=== PATIENT | female | born 1950 | race Caucasian/White ===

== ENCOUNTER 2017-06-06 12:44 | Emergency (ER) | payer SELFPAY ==
[2017-06-06 12:45] VITALS: BP 206/86; PULSE 69; RESP 28; BMI 39.0
--- NOTE | 2017-06-06 12:55 | RAD_ITS ---
STUDY: X-RAY - LEFT SHOULDER REASON FOR EXAM: Female, 66 years old. Left shoulder pain, recent fall. TECHNIQUE: 2 view(s) of the shoulder. COMPARISON: None available FINDINGS: Comminuted fractures are noted through the humeral head and neck with bony overlap of the proximal humeral shaft and one of the humeral head bony fragments. In addition, the humeral head bony fragments are not superimposed upon the Y of the scapula indicating complete dislocation until proven otherwise. The acromioclavicular joint appears intact with fairly severe narrowing suggested. The scapula, ribs and adjacent lung appear intact large gross pneumothorax identified. Fairly severe aortic knob calcifications noted. Mild osteopenia suggested. Moderate increased soft tissue density overlies the deltoid muscle and adjacent tissues suggesting soft tissue swelling and/or hematoma. No radiopaque foreign body or subcutaneous emphysema noted. Normal visualized pulmonary apex. RAD/Shoulder min 2 Views IMPRESSION: Severe left humeral head and neck comminuted fractures, impaction type with proximal humeral shaft superimposed upon the humeral head tiny bony fragments. Complete left glenohumeral dislocation until proven otherwise. Additional views or CT may be more helpful. Electronically Signed: Jovanny Delgado, at 14:36 EDT Tel , Service support ,
[2017-06-06] MEDS: Ondansetron 4 MG/2 ML Vial IV (13:06)
[2017-06-06] MEDS: Morphine 4 MG/ML Syringe IV ×2 (13:08→14:01)
[2017-06-06 13:10] VITALS: TEMP 36.4
--- NOTE | 2017-06-06 13:34 | PCA ---
PAGED DR NIKOLE CANO FOR DR DURBIN AT 1:34
--- NOTE | 2017-06-06 13:45 | ED.VISSUMM ---
- ER Visit Summary Date of Service: 06/06/17 Chief Complaint: Shoulder pain status post fall History of Present Illness: The patient is a 66 F who was carrying orozco down a step. Missed the step. She landed on her left shoulder. She presents with significant pain. She is reluctant to move the left upper extremity. The left upper extremity is internally rotated and adductor. She denies any paresthesia, anesthesia medics. She denies head trauma. Denies neck pain. She is not on any anticoagulant. She denies any cardiac respiratory symptoms. Please read written note for complete detail. Physical Examination: Is in obvious discomfort. Blood pressure is elevated most likely because of pain. There is no pain the patient over the clavicle or AC joint. There is significant pain over the proximal humerus. There is no penetration over the lateral medial epicondyle. No pain the patient with electron process. As noted the patient with radial head. No invasion of the distal radius ulna, carpal bones, metacarpal bones or phalanges. Axillary, median, radial and ulnar function intact. Heart is regular without murmur, gallop or rub. S1 and S2 are normal. Lungs are clear to auscultation with good movement of air bilaterally. Test Results: Two-view x-ray of the elbow was obtained and reveals a Neer 2 part fracture 2 anatomical neck left proximal humerus. Emergency Department Course and Treatment: He was established patient was medicated with 4 mg of morphine and 4 mg of Zofran. Case was discussed with Dr. Ezra Brooks. He recommends sling swath and outpatient follow-up for surgical intervention Treatment Plan: Opiate analgesia, orthopedic outpatient follow-up for surgical intervention Disposition: Discharged to home with sling swath with Impression: Neer 2 part proximal humeral fracture anatomical neck left humerus This note was generated with [employer] dictation software. It may contain incorrect words, spelling, and punctuation that were not noted in review of the chart prior to signing ED Disposition - Plan for ED Patient: Disposition: Home or Assisted Living Chief Complaint: Upper Extremity Injury Instructions: ED Fx Shoulder Prescriptions: Oxycodone HCl/Acetaminophen [Percocet 7.5-325 mg Tablet] 1 tab PO Q6H PRN PRN 5 Days #20 tab PRN Reason: Pain Referrals: Care Physician,No Primary [Primary Care Provider] - Ezra Brooks DO [STAFF PHYSICIAN] - 2 Days
--- NOTE | 2017-06-06 13:51 | ED.DCSUM_ITS ---
- ER Visit Summary Date of Service: 06/06/17 Chief Complaint: Shoulder pain status post fall History of Present Illness: The patient is a 66 F who was carrying orozco down a step. Missed the step. She landed on her left shoulder. She presents with significant pain. She is reluctant to move the left upper extremity. The left upper extremity is internally rotated and adductor. She denies any paresthesia , anesthesia medics. She denies head trauma. Denies neck pain. She is not on any anticoagulant. She denies any cardiac respiratory symptoms. Please read written note for complete detail. Physical Examination: Is in obvious discomfort. Blood pressure is elevated most likely because of pain. There is no pain the patient over the clavicle or AC joint. There is significant pain over the proximal humerus. There is no penetration over the lateral medial epicondyle. No pain the patient with electron process. As noted the patient with radial head. No invasion of the distal radius ulna, carpal bones, metacarpal bones or phalanges. Axillary, median, radial and ulnar function intact. Heart is regular without murmur, gallop or rub. S1 and S2 are normal. Lungs are clear to auscultation with good movement of air bilaterally. Test Results: Two-view x-ray of the elbow was obtained and reveals a Neer 2 part fracture 2 anatomical neck left proximal humerus. Emergency Department Course and Treatment: He was established patient was medicated with 4 mg of morphine and 4 mg of Zofran. Case was discussed with Dr. Ezra Brooks. He recommends sling swath and outpatient follow-up for surgical intervention Treatment Plan: Opiate analgesia, orthopedic outpatient follow-up for surgical intervention Disposition: Discharged to home with sling swath with Impression: Neer 2 part proximal humeral fracture anatomical neck left humerus This note was generated with [employer] dictation software. It may contain incorrect words, spelling, and punctuation that were not noted in review of the chart prior to signing ED Disposition - Plan for ED Patient: Disposition: Home or Assisted Living Chief Complaint: Upper Extremity Injury Instructions: ED Fx Shoulder Prescriptions: Oxycodone HCl/Acetaminophen [Percocet 7.5-325 mg Tablet] 1 tab PO Q6H PRN PRN 5 Days #20 tab PRN Reason: Pain Referrals: Care Physician,No Primary [Primary Care Provider] - Ezra Brooks DO [STAFF PHYSICIAN] - 2 Days
[2017-06-06 14:55] VITALS: BP 111/84; PULSE 61; RESP 14
== END 2017-06-06 14:57 | disposition home or self-care (01) ==
PROVIDERS: Emergency Provider Emergency Medicine
DX: S42.292A Other displaced fracture of upper end of left humerus, initial encounter for closed fracture (principal); W10.9XXA Fall (on) (from) unspecified stairs and steps, initial encounter; Y93.9 Activity, unspecified; Y92.9 Unspecified place or not applicable; Y99.9 Unspecified external cause status; E66.9 Obesity, unspecified
CPT/HCPCS: 73030; 96374; 96375; 96376; 99283; A4216; J2405

== ENCOUNTER 2017-06-18 12:29 | Inpatient (IN) | payer SELFPAY ==
[2017-06-13 08:10] VITALS: BP 146/89; PULSE 78; RESP 16; TEMP 36.8; O2SAT 98; BMI 41.3
--- NOTE | 2017-06-13 08:33 | SDCEKG_ITS ---
Test Reason : Blood Pressure : / mmHG Vent. Rate : 071 BPM Atrial Rate : 071 BPM P-R Int : 174 ms QRS Dur : 084 ms QT Int : 368 ms P-R-T Axes : -02 031 020 degrees QTc Int : 399 ms Normal sinus rhythm Normal ECG Confirmed by JORDEN JANSEN MD ([id number]), editor in chief STARLA IQBAL ([id number]) on 06/17/2017 2:24:09 PM Referred By: READER WIDST Confirmed By:JORDEN JANSEN MD
[2017-06-13 09:34] LABS: Hematocrit 37.6 % (37-47); Hemoglobin 12.3 g/dl (12.0-15.0); Mean Corp Hgb Conc 32.7 g/gl (32-36); Mean Corpuscular Hgb 30.7 pg (27.0-32.0); Mean Corpuscular Volume 93.8 fL (81-99); Mean Platelet Vol. 9.8 fl (6.2-12.0); Platelet Count 215 K/mm3 (150-450); RBC Distribution Width CV 12.6 % (11.6-14.6); RBC Distribution Width SD 43.1 fl (35.1-43.9); Red Blood Count 4.01 M/mm3 (4.2-5.4); Scan Indicated on CBC? Y/N NO
[2017-06-13 09:57] LABS: Anion Gap 7 (5-15); BUN 20 mg/dL (7-18); BUN/Creat Ratio 21.6 RATIO (10-20); Calcium,Total 9.7 mg/dL (8.5-10.1); Chloride 107 mmol/L (98-107); Creatinine, Serum 0.92 mg/dL (0.55-1.02); EST Glomerular Filtration Rate 65 mL/min (>60); Est Glom Filt Rate - Afr Amer 78 mL/min (>60); Glucose 97 mg/dL (74-106); Potassium 4.1 mmol/L (3.5-5.1); Sodium Level 142 mmol/L (136-145)
[2017-06-18] VITALS (11 sets, daily range): BP systolic 107–144; BP diastolic 42–77; PULSE 70–101; RESP 13–18; TEMP 36.2–36.6; O2SAT 39–97; BMI 41.3; BMI 48.0
--- NOTE | 2017-06-18 | SHO_PTH ---
PATIENT: BRANDI ESCOBAR LOC: [facility] U#:[id number] AGE/SX: 66/F ROOM: [facility]316 RE06/18/[address]: Dr. Nile Garg MD : [id number] BED: 1 DIS: 06/19/2017 SPEC #: [id number] RECD: 06/19/17 11:09 STATUS: LINUS REHeidi #: [id number] CECY: 06/18/17 00:[address]: Nile Garg DEPT: SURGICAL PATHOLOGY RECD BY: Kayode Wyman ENTERED: 06/19/17 11:09 SP TYPE: HUMERUS OTHR DR: No Primary Care Phys Tissues: Humerus, NOS Procedures: Decalcification bone/plaque Surgery Specimen Level IV HEADER OPERATION: Total shoulder replacement, reverse PRE-OP DIAGNOSIS: Fracture surgical neck, left humerus TISSUE SUBMITTED: Bone and tissue left shoulder MICROSCOPIC DIAGNOSIS Bone and tissue of left shoulder, total shoulder resection: Organizing fracture callus. AM:robin 06/24/17 MICROSCOPIC DESCRIPTION Slides are reviewed. GROSS DESCRIPTION Received is one container labeled with the patient's name and not further designated. The specimen consists of multiple pieces of bone measuring in aggregate 7 x 7 x 3 cm. A few of the pieces have articular surfaces consistent with humeral head. The articular surface is smooth. The resection margins are congested and hemorrhagic. No soft tissue is identified. Wheel Cutter sections are submitted in two cassettes after decalcification. / SJ:robin 06/19/17 TC:5 CPT: 98447, 62754
--- NOTE | 2017-06-18 12:21 | PCM.OPRPT ---
Report of Operation Date of Procedure: 06/18/17 Pre-Operative Diagnosis: Left 4 part proximal humerus fracture Post-Operative Diagnosis: Left 4 part proximal humerus fracture Surgery/Procedure Performed:: Left reverse total shoulder replacement Description of Surgical Findings:: Stable shoulder with well repaired tuberosities. pest management supervisor: Zain Lainez Type of Anesthesia:: General/Regional Anesthesiologist: Johnny Nichols Special Medications: 2 g Ancef, 1 g TXA at incision, 1 g TXA closure, 10 mg Decadron, joint cocktail (5 mg Duramorph, 30 mL of 0.5% Ropivicaine, 1000 units of epinephrine, 30 mg of Toradol), 1 g Vanc given throughout the case Specimen's removed: Bony cuts Estimated Blood Loss (mL): 150 Fluids Replaced: 1500 ml Description of Procedure: Components used 1. Reunion 28 mm glenoid baseplate, [place] 2. [place] 32 mm +6 mm Glenosphere 3. Carlota 32 mm, 4mm humeral liner 4. [place] reverse TSA humeral adapter tray +4 mm 5. [place] humeral fracture stem 8mm size Brief history/Operative indications: 66 yo f with history of L shoulder pain and four-part proximal humerus fracture. Based on fracture pattern and patient's age and function a reverse total shoulder replacement was recommended. After discussion of risk and benefits of reverse total shoulder replacement including but not limited to blood loss, DVTs, PEs, nerve vessel damage, infection, general risk of anesthesia including loss of life, instability and stiffness patient demonstrating understanding wish to proceed was able to sign informed consent. Medical clearance was obtained. Procedure: On the date of the procedure, patient's L upper extremity was marked in the preoperative area. Patient was taken back to the operating room where they were placed on the table in the supine position. Anesthesia assumed control of the C-spine and airway, then administered anesthetic. All bony prominences were identified well-padded, the head was secured and the patient was placed in the beachchair position at about 35? inclination. Anesthesia remained in control of the C-spine airway throughout the remainder of the procedure. Patient was then appropriately fastened to the table and the L upper extremity was prepped in a sterile fashion. The surgeons then scrubbed. Upon reentering the room, the L upper extremity was draped in a sterile fashion and the incision was marked out. Timeout was called, everyone agreed upon the side, the site, the procedure to be performed, patient identity and antibiotics given. Incision was taken down through skin and subcutaneous tissue, fat down to fascia. The stripe of the deltopectoral interval and cephalic vein were identified and blunt dissection was used to retract the deltoid. The cephalic vein was retracted laterally. Clavipectoral fascia was then incised and a cobell retractor was placed in the wound. The proximal one third of the pectoralis major insertion was released. Pectoralis tendon insertion was used to tenodesed the biceps tendon which was identified in the bicipital groove. Tenodesis was done with #1 Vicryl. Proximally we followed the biceps tendon after transecting it into the rotator interval. The rotator interval was split and the arm was externally rotated. At this point the fracture fragments were identified. The lesser tuberosity fragment was tagged with #2 fiber wires. The greater tuberosity fragment was tagged with #2 FiberWire. The humeral head fragments were debrided from the joint. Extra bone was sent on the back table for graft. At this time glenoid exposure was possible and the glenoid was exposed. Proximal biceps and labrum were debrided from the glenoid. At this time we are able to view the entire outer edge of the glenoid. A central pin was placed we sequentially reamed over this central pin to 28mm. Based on the pin drilling we selected a 32 mm central screw. Glenoid baseplate was opened and held into place as the compression screw was placed centrally. Wound was closely irrigated out with normal saline we then drilled sequentially for 4 screws. Screws were placed superiorly and inferiorly and tightened down the screws. Once the screws were appropriately tightened into place the glenoid baseplate was compressed against the exposed subchondral bone. Locking caps were placed and a 32 mm with 6 mm offset glenosphere was impacted into place engaging the Dowling taper. First taper was tested and was found to be appropriate. Attention was then turned towards the humerus. The humerus was again externally rotated exposing the proximal portion of the humerus. Central canal finder was then used to open up the canal. We reamed t feel canal we then broached to a 8 mm stem. Calcar cut was cleaned up. We trialed the 4 mm liner, with the +4 mm humeral baseplate. We obtained an adequate reduction at this time with a nice stable shoulder. Good internal rotation to the gluteus, forward elevation to 140?, external rotation to 20?. Final components were then assembled on the back table, trials were removed and the wound was copiously irrigated with normal saline after dislocating the shoulder. #5 FiberWire was placed to the fracture stem and the fracture stem was impacted into place. Polyethylene and baseplate were assembled on the back table once the final components were assembled they were impacted into place. Shoulder was then reduced and found to be stable with good range of motion. Tuberosities were repaired using #2 FiberWire take stitches and #5 fiber wires that were run through the fracture stem. Wound was then copiously irrigated out with 1 L of normal saline lavage. The deltopectoral fascia was then closed using #1 Vicryl skin was closed using 2-0 Vicryl interrupted sutures and final skin closure was done with 3-0 Monocryl. Steri-Strips are placed for final skin closure. Sterile dressing was placed patient was then placed in a sling and awakened by anesthesia. Patient was then transferred to the PACU for recovery. Postoperative plan: Patient will be admitted to the hospital overnight. They will get physical therapy starting in 2 weeks with normal postoperative regimen. Patient will be placed on 325 mg aspirin daily for DVT prophylaxis. The first postoperative appointment will be in 2 weeks for wound check and initiation of phase 1 physical therapy. During the course of the procedure the physician acute care certified nursing assistant played a vital role. His intimate knowledge of my steps in the procedure aided in safe and expedient completion of the procedure. The PA played a vital rolls in positioning particularly in obtaining the appropriate beach chair position and securing the patient's body and head to the table. The PA was also vital in the retraction of soft tissues during the exposure and especially the glenoid work as this is a vital part of the procedure to prevent neurovascular damage. the PA was also vital and protecting soft tissues during times of bony cuts and reaming. He also played a vital role in closure with my direct supervision. The PA was also important during reduction and dislocation of the joint and trials intraoperatively. Grafts/Implants Used: [place] - Complications none - Admit VTE Documentation VTE Present on Admission: No VTE Mechan Device Prophylaxis: SCD's, Thigh High JEM Hose VTE Pharm Prophylaxis ordered?: Yes
[2017-06-18] MEDS: Celecoxib 200 MG Capsule 400 MG PO (13:14)
[2017-06-18] MEDS: Acetaminophen 500 MG Tablet 1000 MG PO (13:14)
[2017-06-18] MEDS: morphine SR 15 MG Tablet PO (13:45)
[2017-06-18] MEDS: Cefazolin 2 GM in 0.9% Normal Saline 100 ML IV (14:40)
--- NOTE | 2017-06-18 17:05 | RAD_ITS ---
STUDY: X-RAY - LEFT SHOULDER REASON FOR EXAM: Female, 66 years old. Postop TECHNIQUE: Single view of the shoulder. COMPARISON: June 06, 2017. FINDINGS: Status post left shoulder prosthesis placement. The hardware components are well aligned on this single limited view. Post surgical changes in the adjacent soft tissue. Normal visualized pulmonary apex. RAD/Shoulder One View IMPRESSION: Status prosthesis placement of the shoulder with postsurgical changes. Electronically Signed: Robinson Roman DO at 18:36 EDT Tel [phone], Service support ,
[2017-06-18] MEDS: Ketorolac 15 MG/ML Vial IV (17:10)
[2017-06-18] MEDS: Lactated Ringers 1,000 ML 125 ML IV (18:26)
[2017-06-18] MEDS: Morphine 2 MG/ML Syringe IV (20:18)
[2017-06-18] MEDS: 0.9% NaCl Peripheral Flush Adult/Peds IV (20:19)
[2017-06-18] MEDS: Cefazolin 1 GM/50 ML BAG IV (20:24)
[2017-06-19] MEDS: Cefazolin 1 GM/50 ML BAG IV (04:59)
[2017-06-19] MEDS: Lactated Ringers 1,000 ML 125 ML IV (04:59)
[2017-06-19 05:00] VITALS: BP 120/70; PULSE 79; RESP 18; TEMP 36.3; O2SAT 96
[2017-06-19] MEDS: Acetaminophen 500 MG Tablet 1000 MG PO ×2 (05:01→13:44)
[2017-06-19] MEDS: Morphine 2 MG/ML Syringe IV (05:02)
--- NOTE | 2017-06-19 07:27 | PN.ORTHO_ITS ---
Subjective: The patient was sitting in bed upon examination. Patient denies any chest pain , shortness of breath, dizziness, lightheadedness, nausea or vomiting, or calf pain. Pain is controlled on medications. No adverse overnight events. Patient does report if she moves her shoulder she does have increased pain. At rest in UltraSling she is doing well. Objective: Dressing is C/D/I Ultra-sling fitting appropriately Sensation intact to axillary, radial, median, and ulnar distribution Motor intact to AIN, PIN, and ulnar nerve - Physical Exam General: Alert, Oriented x3, Cooperative, No apparent distress Vital Signs Temp Pulse Resp BP Pulse Ox 97.4 F L 79 18 120/70 96 06/19/17 05:00 06/19/17 05:00 06/19/17 05:00 06/19/17 05:00 06/19/17 05:00 Oxygen Flow Rate (L/min) 2 Oxygen Delivery Method Nasal Cannula Weight: 127.006 kg Body Mass Index (BMI) 48.0 Intake and Output for Last 24 Hours 06/17/17 06/18/17 06/19/17 23:59 23:59 23:59 Intake Total 1700 / 1700 1349 / 1349 Output Total 250 / 250 Balance 1700 / 1700 1099 / 1099 Medical Necessity - Tobacco Use Smoking Status: Former smoker Assessment/Plan 1. S/P left reverse total shoulder arthroplasty secondary to four-part proximal humerus fracture POD #1 2. Continue Pain Medications: Tylenol and tramadol 3. DVT Prophylaxis: Aspirin 325 mg daily 4. PT/OT: Continue with UltraSling at all times. Patient is to come out 3-4 times to work on elbow, wrist, hand range of motion. Formal physical therapy will begin 2 weeks postoperatively after follow-up visit. 5. Encouraged Incentive Spirometry 6. Disposition: Plan will be for possible discharge home today if pain is well controlled. Prescriptions are attached to chart. Patient will follow-up per postop instructions.
--- NOTE | 2017-06-19 07:33 | DCINST_ITS ---
Discharge Diet: No Restrictions Discharge Activity: May Not Drive May shower in (days): 1 - Turned dressing away from water Ice area for (Minutes): 20 - Ice area for 20 minutes each hour while awake Weight Bearing Status: No weight bearing - Left upper extremity Keep extremity elevated above heart level: Operative Extremity Call your doctor if your incision/area has: Continuous Slow Oozing, Sudden Increased Bleeding, Increased Pain/ Swelling, Increased Redness, Foul Smelling Discharge Call your doctor if you observe: Fever of 101 or Higher, Coldness, Increased Pain, Numbness or Tingling, Change in Color Remove Dressing in (days):: 4 - Okay to remove dressing on June 23, 2017 Additional Instructions: Follow [facility] postop instructions Allergies/Adverse Reactions: Allergies oxycodone [From Percocet] Allergy (Verified 06/13/17 08:09) Itching HEADACHE, NAUSEATED Sulfa (Sulfonamide Antibiotics) Allergy (Verified 06/13/17 08:09) Anaphylaxis Medications to take at Discharge Acetaminophen [Tylenol] 1,000 mg PO Q8 #90 tab 06/19/17 Aspirin 325 mg PO DAILY@0800 #14 tab 06/19/17 Famotidine [Pepcid] 20 mg PO DAILY #14 tab 06/19/17 Senna/Docusate Sodium [Senokot-S] 2 tab PO BID PRN PRN #20 tab 06/19/17 traMADol [Ultram] 50 - 100 mg PO Q6H PRN PRN 7 Days #56 tab 06/19/17 The following prescriptions were given: traMADol [Ultram] 50 - 100 mg PO Q6H PRN PRN 7 Days #56 tab PRN Reason: Pain Acetaminophen [Tylenol] 1,000 mg PO Q8 #90 tab Aspirin 325 mg PO DAILY@0800 #14 tab Famotidine [Pepcid] 20 mg PO DAILY #14 tab Senna/Docusate Sodium [Senokot-S] 2 tab PO BID PRN PRN #20 tab PRN Reason: Constipation Primary Care Physician: Care Physician,No Primary [Primary Care Provider] - Please Follow Up With: Zain Lainez PA-C When: 07/01/17 @ 3:30 pm Please Follow Up With: [facility] When: 07/01/17 @ 4:30 pm with Anny
[2017-06-19 08:51] VITALS: BP 125/61; PULSE 77; RESP 18; TEMP 37.1; O2SAT 92
[2017-06-19] MEDS: Famotidine 20 MG Tablet PO (09:09)
[2017-06-19] MEDS: Aspirin 325 MG Tablet PO (09:09)
[2017-06-19] MEDS: traMADol 50 MG Tablet PO (09:12)
--- NOTE | 2017-06-19 09:55 | CASEMGMT ---
Social Work Assessment SW met with pt for initial assessment and to determine discharge needs. SW introduced self and role at [facility]. Pt is listed as self-pay. SW confirmed with pt that she is self-pay and pt is. SW asked pt if she had applied for Medicaid before and pt states that she has but got denied. SW offered resources on [place] [id number], [facility], [facility] financial assistance (if pt was to follow up with them, prescription assistance and HCAP information for pt. SW also provided pt with a list of primary care physicians as pt doesn't have one. Pt states that she lives in a one store home with her and her is good support for her. Pt states that her is able to provide help when needed. Pt states that her is retired. Pt states that before coming to [facility] she was previously independent with ADLs. Pt states that she has a cane at home and uses a regular chair in the bath tub. Per discharge instructions, pt is to follow up with Zain Lainez PA-C on 07/01/2017 at 3:30pm and [facility] for physical therapy on 07/01/2017 at 4:30pm with Anyn. Pt denied additional needs at this time. SW will continue to follow to assist with discharge planning if needed. Substance Abuse Hx: Pt state that she used to smoke cigarettes but she quit. Pt denied additional substance abuse. Mental Health Hx: Pt states that she has a history of dealing with depression. Pt denied taking medication or receiving counseling services for her depression. Pt currently denied depressive symptoms. Pt denied needing mental health resources. Plan: Discharge home with outpatient therapy Althea Merrill CONSULTING INTERN, CRIMINAL JUSTICE INSTRUCTOR
[2017-06-19] MEDS: 0.9% NaCl Peripheral Flush Adult/Peds IV (11:32)
[2017-06-19] MEDS: Ketorolac 15 MG/ML Vial IV (11:33)
[2017-06-19 13:34] VITALS: BP 132/66; PULSE 80; RESP 18; TEMP 36.5; O2SAT 98
== END 2017-06-19 14:30 | disposition home or self-care (01) | DRG 483 ==
LOC: MS3 12:30
PROVIDERS: Admitting Provider Specialist; Visit Provider Specialist
PROC: 0RRK00Z Replacement of Left Shoulder Joint with Reverse Ball and Socket Synthetic Substitute, Open Approach (ICD-10-PCS; CPT 23472; principal; 2017-06-18 14:15)
DX: S42.242A 4-part fracture of surgical neck of left humerus, initial encounter for closed fracture (principal); Z68.41 Body mass index [BMI] 40.0-44.9, adult; W10.9XXA Fall (on) (from) unspecified stairs and steps, initial encounter; Y93.9 Activity, unspecified; Y92.22 Religious institution as the place of occurrence of the external cause; Y99.0 Civilian activity done for income or pay; K21.9 Gastro-esophageal reflux disease without esophagitis; E66.9 Obesity, unspecified; F32.9 Major depressive disorder, single episode, unspecified; Z78.0 Asymptomatic menopausal state; Z87.891 Personal history of nicotine dependence
CPT/HCPCS: 73020; 80048; 85027; 87081; 88305; 88311; 93005; 97166; J7120; A4216; J2405

== ENCOUNTER 2017-06-23 23:33 | Emergency (ER) | payer SELFPAY ==
[2017-06-23 23:35] VITALS: BP 145/88; PULSE 64; RESP 15; TEMP 36.6; BMI 41.3
[2017-06-24] MEDS: Ondansetron 4 MG/2 ML Vial IV (00:04)
[2017-06-24] MEDS: 0.9% Normal Saline 1,000 ML 999 ML IV (00:04)
--- NOTE | 2017-06-24 00:10 | ED.DCSUM_ITS ---
- ER Visit Summary Date of Service: 06/24/17 Chief Complaint: Sick History of Present Illness: The patient is a 66 F with nausea and vomiting for 2 days. The patient had a left total shoulder replacement [address] Garg, and she was discharged home 4 days ago from the hospital. She did well the first day at home, and felt slightly nauseated the second day. After that, she began to have nausea, vomiting, worse after taking tramadol. She also reports no bowel movement since surgery. Denies abdominal pain. Denies urinary symptoms. Denies chest pain or shortness of breath. Denies fever. Denies any shoulder pain, weakness, or numbness. Denies any drainage or bleeding. Physical Examination: Afebrile and vital signs unremarkable. No acute distress. Shoulder shows postoperative changes. Sites appear clean, dry, and intact. She is neurovascular intact distally. Heart regular. Lungs clear. Abdomen soft and nontender. Skin appears normal. Test Results: KUB pending. Emergency Department Course and Treatment: Patient treated with fluids and Zofran while awaiting results. I suspect this may be a medication reaction. She has had reactions to narcotics in the past. I am also concerned because she is constipated. This may also be from the narcotic, but I am checking a KUB to make sure she has no sign of ileus or obstruction. Will reassess. X-ray negative. On reassessment, patient is feeling much better. I suspect that her symptoms of constipation and upset stomach may be from the tramadol. She has tolerated [place] and Vicodin in the past. Will prescribe a short course. Discontinue the tramadol. She is not on any other controlled substances currently. Patient was advised other medical issues and surgical issues can cause vomiting. Return for any abdominal pain, new or worsening symptoms. Otherwise, follow-up with her doctor. Treatment Plan: As above Disposition: Discharged Impression: 1. Nausea and vomiting 2. Status post left shoulder replacement This note was generated with [employer] software. It may contain incorrect words, spelling, and punctuation that were not noted in review of the chart prior to signing ED Disposition - Plan for ED Patient: Disposition: Home or Assisted Living Chief Complaint: Nausea/Vomiting Instructions: ED Nausea Vomiting Prescriptions: Hydrocodone Bitart/Apap 5-325 [[place] 5/325] 1 tab PO Q6H PRN PRN 3 Days #12 tab PRN Reason: Pain Ondansetron [Zofran Odt] 4 mg PO Q8H PRN PRN #10 tab PRN Reason: Nausea Senna [Senokot] 1 tab PO DAILY #10 tab Referrals: Nile Garg MD [STAFF PHYSICIAN] -
--- NOTE | 2017-06-24 00:14 | RAD_ITS ---
STUDY: X-RAY - ABDOMEN/PELVIS REASON FOR EXAM: Female, 66 years old. NAUSEA. PATIENT HAD SHOULDER SURGERY THIS PAST SATURDAY TECHNIQUE: 3 AP supine views of the abdomen and pelvis. COMPARISON: None. FINDINGS: Normal visualized lung bases. There is an unremarkable bowel gas pattern. There is no demonstrated free abdominal air. The visualized liver, spleen and kidneys are grossly normal in size and morphology. Normal soft tissue structures. Normal visualized osseous structures. RAD/Abdomen Single View (Portable) IMPRESSION: Normal x-ray examination of the abdomen and pelvis. Electronically Signed: Mya Pichardo MD at 1:41 EDT Tel , Service support ,
--- NOTE | 2017-06-24 01:57 | ED.DEP ---
ED Disposition - Plan for ED Patient: Chief Complaint: Nausea/Vomiting Instructions: ED Nausea Vomiting Prescriptions: Hydrocodone Bitart/Apap 5-325 [[place] 5/325] 1 tab PO Q6H PRN PRN 3 Days #12 tab PRN Reason: Pain Ondansetron [Zofran Odt] 4 mg PO Q8H PRN PRN #10 tab PRN Reason: Nausea Senna [Senokot] 1 tab PO DAILY #10 tab Referrals: Nile Garg MD [STAFF PHYSICIAN] -
--- NOTE | 2017-06-24 02:00 | DCINST.ED_ITS ---
ED Disposition - Plan for ED Patient: Chief Complaint: Nausea/Vomiting Instructions: ED Nausea Vomiting Prescriptions: Hydrocodone Bitart/Apap 5-325 [[place] 5/325] 1 tab PO Q6H PRN PRN 3 Days #12 tab PRN Reason: Pain Ondansetron [Zofran Odt] 4 mg PO Q8H PRN PRN #10 tab PRN Reason: Nausea Senna [Senokot] 1 tab PO DAILY #10 tab Referrals: Nile Garg MD [STAFF PHYSICIAN] -
[2017-06-24 02:05] VITALS: BP 144/74; PULSE 66; O2SAT 97
== END 2017-06-24 02:08 | disposition home or self-care (01) ==
PROVIDERS: Emergency Provider Emergency Medicine
DX: R11.2 Nausea with vomiting, unspecified (principal); T40.4X5A Adverse effect of other synthetic narcotics, initial encounter; Y92.9 Unspecified place or not applicable; K59.00 Constipation, unspecified; Z96.612 Presence of left artificial shoulder joint; Z87.891 Personal history of nicotine dependence
CPT/HCPCS: 74018; 96361; 96374; 99283; J7030; A4216; J2405

== ENCOUNTER → 2023-01-03 | Outpatient (CLI) | payer MEDICARE, OTHER, SELFPAY ==
[2023-01-03 17:36] LABS: Absolute Lymphocyte Count 1.95 X10^3/uL (0.83-4.51); Absolute Neutrophil Count 3.5 X10^3/uL (2.0-7.7); Basophil# 0.07 X10^3/uL; Basophil% 1.1 % (0-1); Eosinophil# 0.26 X10^3/uL; Eosinophils% 4.2 % (0-5); Hemoglobin 14.8 g/dL (12.0-15.0); Lymphocyte # 1.95 X10^3/ul (0.83-4.51); Lymphocyte % 31.3 % (19-41); Mean Corp Hgb Conc 32.9 g/dL (32-36); Mean Corpuscular Hgb 31.2 pg (27.0-32.0); Mean Corpuscular Volume 94.7 fL (81-99); Mean Platelet Vol. 10.1 fl (6.2-12.0); Monocyte# 0.48 X10^3/uL; Monocyte% 7.7 % (0-10); NRBC Flagged by Analyzer 0 % (0-5); Neutrophil # 3.45 X10^3/uL (2.7-7.7); Neutrophil % 55.4 % (47-70); Platelet Count 248 K/mm3 (150-450); RBC Distribution Width CV 12.3 % (11.6-14.6); RBC Distribution Width SD 42.9 fl (35.1-43.9); Red Blood Count 4.75 M/mm3 (4.2-5.4); White Blood Count 6.2 K/mm3 (4.4-11.0)
[2023-01-03 18:31] LABS: ALB/GLOB Ratio 1.2 RATIO (0.9-2.4); AST(SGOT) 21 U/L (15-37); Alanine Aminotransfer ALT/SGPT 36 U/L (13-56); Albumin, Serum 3.7 g/dL (3.2-5.0); Alkaline Phosphatase 97 U/L (45-117); Anion Gap 6 (5-15); BUN 15 mg/dL (7-18); BUN/Creat Ratio 17.1 RATIO (10-20); Calcium,Total 10.7 mg/dL (8.5-10.1); Chloride 109 mmol/L (98-107); Creatinine, Serum 0.88 mg/dL (0.55-1.02); EST Glomerular Filtration Rate 68 mL/min (>60); Est Glom Filt Rate - Afr Amer 82 mL/min (>60); Globulin 3.2 g/dL (2.2-4.2); Glucose 92 mg/dL (74-106); Potassium 3.9 mmol/L (3.5-5.1); Protein, Total 6.9 g/dL (6.4-8.2); Sodium Level 141 mmol/L (136-145); Thyroid Stim Hormone (TSH) 1.84 uIU/mL (0.358-3.74)
[2023-01-03 18:50] LABS: Hepatitis C Antibody Non-Reactive (Nonreactive); Vitamin B12 291 pg/mL (211-911); Vitamin D,25 Hydroxy 16.4 ng/mL
[2023-01-07 15:07] LABS: PROEL- A/G Ratio 1.3 (0.7-1.7); PROEL- Albumin 3.6 g/dL (2.9-4.4); PROEL- Alpha-1 Globulin 0.2 g/dL (0.0-0.4); PROEL- Alpha-2 Globulin 0.8 g/dL (0.4-1.0); PROEL- Gamma Globulin 0.7 g/dL (0.4-1.8); PROEL- Globulin, Total 2.7 g/dL (2.2-3.9); PROEL- TOTAL PROTEIN 6.3 g/dL (6.0-8.5); PROEL-M-Spike Not Observed g/dL (Not Observed)
== END | disposition home or self-care (01) ==
LOC: POLAB3 16:30
PROVIDERS: PCP Family Medicine Geriatric Medicine; Visit Provider Family Medicine Geriatric Medicine
DX: R53.83 Other fatigue (principal); Z13.89 Encounter for screening for other disorder; E55.9 Vitamin D deficiency, unspecified
CPT/HCPCS: 36415; 80053; 82306; 82607; 84165; 84443; 85025; 86803

== ENCOUNTER → 2023-01-22 | Outpatient (CLI) | payer MEDICARE, OTHER, SELFPAY ==
--- NOTE | 2023-01-22 08:57 | BD_ITS ---
STUDY: DUAL ENERGY X-RAY ABSORPTIOMETRY / DXA REASON FOR EXAM: Female, 72 years old. 627.8Menopausal postmenopausal BONE DENSITY REASON FOR EXAM TECHNIQUE: Bone Mineral Density (BMD) measurements of lumbar spine and bilateral hips were obtained. COMPARISON: None. FINDINGS: Lumbar Spine (L1-L4): g/cm2 (0.758) / T-score (-2.7) / Z-score (-0.6) Findings are suggestive of osteoporosis with a high fracture risk. Left Femur Total: g/cm2 (0.728) / T-score (-1.8) / Z-score (-0.2) Left Femoral Neck: g/cm2 (0.487) / T-score (-3.3) / Z-score (-1.5) Right Femur Total: g/cm2 (0.714) / T-score (-1.9) / Z-score (-0.4) Right Femoral Neck: g/cm2 (0.532) / T-score (-2.9) / Z-score (-1.0) BD/Dexa Bone Density Study IMPRESSION: The patient is considered osteoporotic as outlined below according to World [employer] Organization (WHO) criteria with a high fracture risk. Reference Information: The T-score is the number of standard deviations above or below the standard which is normal for young adults at their peak bone mineral density. The World Health Organization (WHO) interprets the T-scores as follows: Above -1 Normal bone density Between -1 and -2.5 Osteopenia Equal to / or below -2.5 Osteoporosis As a practical clinical guideline, osteopenia may be graded as follows: Mild -1 through -1.5 Moderate -1.6 through -2.0 Severe -2.1 through -2.4 The Z-score is the number of standard deviations above or below age-matched controls. A Z-score of less than -1.5 would be considered abnormal. References: 1. NIH Osteoporosis and Related Bone Diseases www osteo.org 2. International Society for Clinical Densitometry www iscd.org 3. National Osteoporosis Foundation www nof.org Electronically Signed: Leno Torres MD at 15:27 EST ,
== END | disposition home or self-care (01) ==
LOC: OPBD 08:49
PROVIDERS: PCP Family Medicine Geriatric Medicine; Referring Provider Family Medicine Geriatric Medicine; Visit Provider Family Medicine Geriatric Medicine
DX: Z78.0 Asymptomatic menopausal state (principal)
CPT/HCPCS: 77080

== ENCOUNTER → 2023-02-07 | Outpatient (CLI) | payer MEDICARE, OTHER, SELFPAY ==
[2023-02-07 14:03] LABS: PTHIN 116.2 pg/mL (18.4-80.1)
== END | disposition home or self-care (01) ==
LOC: POLAB3 12:13
PROVIDERS: PCP Family Medicine Geriatric Medicine; Visit Provider Family Medicine Geriatric Medicine
DX: E83.52 Hypercalcemia (principal)
CPT/HCPCS: 36415; 83970

== ENCOUNTER → 2023-03-14 | Outpatient (CLI) | payer MEDICARE, OTHER, SELFPAY ==
--- NOTE | 2023-03-14 10:18 | NM_ITS ---
CLINICAL: 72-year-old female with history of hypercalcemia. 99m Tc SESTAMIBI DUAL PHASE PARATHYROID SCINTIGRAPHY COMPARISON: None available FINDINGS: Following the intravenous administration of 25.9 mCi of 99m Tc sestamibi, image acquisitions of the anterior neck at 20 minutes and 2.0 hours post radiopharmaceutical provision reveal: 1. Immediate static blood pool acquisitions demonstrate distribution of the radiopharmaceutical in the right-left thyroid colloid of a U-shaped thyroid gland. 2. Delayed images depict persistent prominent tracer concentration defined in the inferior pole of the right lobe thyroid bed. NM/Parathyroid Scan IMPRESSION: 1. ABNORMAL 99m Tc SESTAMIBI PARATHYROID IMAGING DUAL PHASE EXAMINATION. 2. 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 Electronically Signed: Jarrod Lamb DO at 23:42 EST ,
== END | disposition home or self-care (01) ==
LOC: NM 10:13
PROVIDERS: PCP Family Medicine Geriatric Medicine; Referring Provider Family Medicine Geriatric Medicine; Visit Provider Family Medicine Geriatric Medicine
DX: E83.52 Hypercalcemia (principal)
CPT/HCPCS: 78070; A9500

== ENCOUNTER → 2023-04-10 | Outpatient (CLI) | payer MEDICARE, OTHER, SELFPAY ==
--- OUTSIDE RECORDS SUMMARY | 2023-04-10 11:55 | XMS RPT_ITS | CCD ---
Author Name Unknown Address [address] [place] [address] Organization [facility] Care Team Providers Care Route Driver Salesperson Name Role Phone Unavailable Primary Care Provider MARLEY Mustafa Referring Unavailable Allergies Allergy Classification Reported Allergen(s) Allergy Type Date of Onset Reaction(s) Facility (4 sources) Sertraline; Translations: [SERTRALINE HCL] Drug Allergy 4 Mental Status Change [facility] Work Phone: (4 sources) Sulfonamides (Antibiotic); Translations: [SULFA (SULFONAMIDE ANTIBIOTICS)] Propensity to adverse reactions 6 Itching, Anaphylaxis [facility] Work Phone: Medications Current Medications Medication Drug Class(es) Dates Sig (Normalized) Sig (Original) doxycycline monohydrate 100 mg oral tablet (1 source) Tetracycline-clas s Drug Start: 10-18-2021 End: 10-25-2021 take 1 tablet by mouth twice daily doxycycline monohydrate 100 mg tablet Take 1 tablet by mouth twice daily for 7 days. 14 tablet 0 10/18/2021 10/25/2021 Active Completed/Discontinued Medications Medication Drug Class(es) Dates Sig (Normalized) Sig (Original) benzonatate 100 mg oral capsule (3 sources) Non-narcotic Antitussive Start: 10-18-2021 take 2 capsules by mouth every eight hours as needed benzonatate (TESSALON PERLES) 100 mg capsule Take 2 capsules by mouth three times daily as needed. 30 capsule 0 10/18/2021 Active Problems Problem Classification Problem Date Documented Da te Episodic/Chronic Allergic reactions (1 source) Contact dermatitis; Translations: [Unspecified contact dermatitis, unspecified cause] Episodic Anxiety disorders (3 sources) Mixed anxiety and depressive disorder; Translations: [Anxiety disorder, unspecified] Onset: 11-30-2013 11-30-2013 Chronic Other hereditary and degenerative nervous system conditions (3 sources) Hereditary essential tremor; Translations: [Essential tremor] Onset: 11-30-2013 11-30-2013 Chronic Other lower respiratory disease (1 source) Cough; Translations: [Acute cough] Episodic Other upper respiratory infections (1 source) Sore throat symptom; Translations: [Acute pharyngitis, unspecified] Episodic Unclassified (1 source) Acute cough; Translations: [Acute cough] Onset: 10-18-2021 Results Test Name Value Interpretation Reference Range Facil ity Vital Signs Date Time Vital Sign Value Performing Clinician Izzy lity 06-06-2022 16:06-0400 Body temperature 98.49 [degF] Ayla Kruse APRN.POULTRY BARN MANAGER Work Phone: [facility] 06-06-2022 16:06-0400 Body weight 99.79 kg Ayla Kruse APRN.POULTRY BARN MANAGER Work Phone: [facility] 06-06-2022 16:06-0400 Diastolic blood pressure 80 mm[Hg] Ayla Kruse APRN.POULTRY BARN MANAGER Work Phone: [facility] 06-06-2022 16:06-0400 Heart rate 95 /min Ayla Kruse APRN.POULTRY BARN MANAGER Work Phone: [facility] 06-06-2022 16:06-0400 Respiratory rate 18 /min Ayla Kruse APRN.POULTRY BARN MANAGER Work Phone: [facility] 06-06-2022 16:06-0400 SaO2% (BldA) [Mass fraction] 97 % Ayla Kruse APRN.POULTRY BARN MANAGER Work Phone: [facility] 06-06-2022 16:06-0400 Systolic blood pressure 124 mm[Hg] Ayla Kruse APRN.POULTRY BARN MANAGER Work Phone: [facility] 10-18-2021 18:59-0400 Body temperature 101.3 [degF] Marley Hussein PA-C Work Phone: [facility] 10-18-2021 18:59-0400 Body weight 99.61 kg Marley Hussein PA-C Work Phone: [facility] 10-18-2021 18:59-0400 Diastolic blood pressure 78 mm[Hg] Marley Hussein PA-C Work Phone: [facility] 10-18-2021 18:59-0400 Heart rate 114 /min Marley Hussein PA-C Work Phone: [facility] 10-18-2021 18:59-0400 Respiratory rate 20 /min Marley Hussein PA-C Work Phone: [facility] 10-18-2021 18:59-0400 SaO2% (BldA) [Mass fraction] 96 % Marley Hussein PA-C Work Phone: [facility] 10-18-2021 18:59-0400 Systolic blood pressure 122 mm[Hg] Marley Hussein PA-C Work Phone: [facility] Encounters Encounter Date Encounter Type Care Provider Facility Start: 07-17-2022 ambulatory Eileen Knight MA [facility] Procedures Date Procedure Procedure Detail Performing Clinician Start: 10-18-2021 STREP A MOLECULAR (POC) Marley Hussein PA-C Work Phone: Plan of Treatment Date Care Activity Detail Author Start: 12-29-2023 Urine microalbumin profile DTAP,TDAP,TD (2 - Td or Tdap) [facility] Start: 03-11-2022 ADVANCE DIRECTIVE DISCUSSION ADVANCE DIRECTIVE DISCUSSION [facility] Start: 11-09-2021 Influenza vaccination INFLUENZA (#1) [facility] Start: 10-18-2021 End: 11-01-2021 SARS-CoV-2 (COVID-19) RNA [Presence] in Respiratory specimen by SHIRA with probe detection [facility] Work Phone: Immunizations Immunization Date Immunization Notes Care Provider Vitaliy chan 12-28-2013 tetanus toxoid, redu kristi diphtheria toxoid, and acellular pertussis vaccine, adsorbed Marley OSCAR-Alejandra Work Phone: [facility] 11-30-2013 influenza, seasonal, injectable Marley Hussein PA-C Work Phone: [facility] 11-30-2013 pneumococcal polysaccharide vaccine, 23 valent Marley Hussein PA-C Work Phone: [facility] Payers Date Payer Category Payer Unknown [employer] [id number] 2017-Present [phone] [address] [place] [address] Indemnity [id number] 2017 Unknown [id number] 2017 Medicare MEDICARE MEDICAR E A AND B [id number] 2017-Present [phone] [place] [address] Medicare [id number] 2017 Medicare [id number] Social History Date Type Detail Facility [facility]: [facility] History of tobacco use Cigarette Smoker C [facility] Start: 10-18-2021 Cigarettes smoked cu rrent (pack per day) - Reported 0.5 [facility] Start: 10-18-2021 Tobacco use and exposure Smoke less tobacco non-user [facility] Start: 10-18-2021 End: 06-06-2022 Alcohol intake Current non-drinker of alcohol (finding) [facility] Start: 1950 Sex Assigned At Not on file C [facility] Clinical Note 07-17-2022 Note Date & Type Note Facility 07-17-2022 Note Patient Outreach (MIN TNAV) BRANDI ESCOBAR ([id number]) 1950 F Date Time Provider Department 07/17/22 EILEEN KNIGHT During your visit today, we recorded the following information about you: Eileen Knight MA 07/17/2022 11:34 AM Signed POPULATION HEALTH NAVIGATION OUTREACH Action/FYI left message to call me back to confirm pcp or schedule Patient Identified by Name and : NO Outreach Outcome/Action Unable to reach patient: Left message Did you use a PCP flex slot to schedule this appointment? N/A Reason for Outreach Attribution: Consult to Primary Care Payer: Payor: MEDICARE / Plan: MEDICARE A AND B / Product Type: Medicare / Care Gap Reviewed:: Annual Wellness visit Colorectal Cancer Screening Reminder: Reminder note to check Health Maintenance for items below Health Maintenance items due: COVID-19 VACCINE(1) Never done HEPATITIS C SCREENING Never done MAMMOGRAM Never done COLORECTAL CANCER SCREENING Never done SHINGRIX VACCINE(1 of 2) Never done PNEUMOCOCCAL: 65+(2 - PCV) due on 11/30/2014 DIABETES SCREEN due on 11/30/2016 BONE DENSITY Never done LIPID SCREEN due on 11/30/2018 ADVANCE DIRECTIVE DISCUSSION Never done Navigation Signature: Eileen Knight MA July 17, 2022 11:34 AM Allergies As of Date: 07/17/2022 Noted Allergy Reaction SULFA (SULFONAMIDE ANTIBIOTICS) 06/28/2005 9 - Itching 10 - Anaphylaxis ZOLOFT (SERTRALINE HCL) 12/28/2013 1 - Mental Status Change Comments: Anxiety Date Reviewed: 06/06/2022 Reviewed by: Marlys Barreto MA - Fully Assessed Reason for Visit: Population Health Navigation Outreach [3910] Cmt: ACO No PCP list Prescriptions as of 07/17/2022 - benzonatate (TESSALON PERLES) 100 mg capsule Take 2 capsules by mouth three times daily as needed. - PARoxetine (PAXIL) 20 mg tablet Take 1 tablet by mouth once daily. Problem List As Of Date 07/17/2022 Noted Resolved Anxiety and depression [F41.9, F32.A] 11/30/2013 Tremor, hereditary, benign [G25.0] 11/30/2013 Encounter Status:Closed by EILEEN KNIGHT on 07/17/22 [facility] Progress note 07-17-2022 Note Date & Type Note Facility 07-17-2022 Note HNO ID: [id number] Author: Eileen Knight MA Service: ? Author Type: Telecommunicator Type: Progress Notes Filed: 07/17/2022 11:34 AM Note Text: POPULATION HEALTH NAVIGATION OUTREACH Action/FYI left message to call me back to confirm pcp or schedule Patient Identified by Name and : NO Outreach Outcome/Action Unable to reach patient: Left message Did you use a PCP flex slot to schedule this appointment? N/A Reason for Outreach Attribution: Consult to Primary Care Payer: Payor: MEDICARE / Plan: MEDICARE A AND B / Product Type: Medicare / Care Gap Reviewed:: Annual Wellness visit Colorectal Cancer Screening Reminder: Reminder note to check Health Maintenance for items below Health Maintenance items due: COVID-19 VACCINE(1) Never done HEPATITIS C SCREENING Never done MAMMOGRAM Never done COLORECTAL CANCER SCREENING Never done SHINGRIX VACCINE(1 of 2) Never done PNEUMOCOCCAL: 65+(2 - PCV) due on 11/30/2014 DIABETES SCREEN due on 11/30/2016 BONE DENSITY Never done LIPID SCREEN due on 11/30/2018 ADVANCE DIRECTIVE DISCUSSION Never done Navigation Signature: Eileen Knight MA July 17, 2022 11:34 AM [facility] History of Present illness Narrative 07-17-2022 Eileen Knight MA - 07/17/2022 11:31 AM EDT Note Date & Type Note Facility 07-17-2022 History of Presen t illness Narrative POPULATION HEALTH NAVIGATION OUTREACH Action/FYI left message to call me back to confirm pcp or schedule Patient Identified by Name and : NO Outreach Outcome/Action Unable to reach patient: Left message Did you use a PCP flex slot to schedule this appointment? N/A Reason for Outreach Attribution: Consult to Primary Care Payer: Payor: MEDICARE / Plan: MEDICARE A AND B / Product Type: Medicare / Care Gap Reviewed:: Annual Wellness visit Colorectal Cancer Screening Reminder: Reminder note to check Health Maintenance for items below Health Maintenance items due: COVID-19 VACCINE(1) Never done HEPATITIS C SCREENING Never done MAMMOGRAM Never done COLORECTAL CANCER SCREENING Never done SHINGRIX VACCINE(1 of 2) Never done PNEUMOCOCCAL: 65+(2 - PCV) due on 11/30/2014 DIABETES SCREEN due on 11/30/2016 BONE DENSITY Never done LIPID SCREEN due on 11/30/2018 ADVANCE DIRECTIVE DISCUSSION Never done Navigation Signature: Eileen Knight MA July 17, 2022 11:34 AM documented in this encounter [facility] Progress note 06-06-2022 Note Date & Type Note Facility 06-06-2022 Note HNO ID: [id number] Author: Ayla Kruse APRN.POULTRY BARN MANAGER Service: ? Author Type: Nurse Practitioner Type: Progress Notes Filed: 06/06/2022 4:32 PM Note Text: Subjective Patient presents with a rash on the left side of her face. Patient says she woke up in the middle the night with it. Patient says its not painful but does feel tight. Patient says it feels a little warm at times. Patient denies any other symptoms at this time. Patient denies any new lotions creams soaps laundry detergents. Patient has not done anything new to cause the reaction. Patient's never had this kind of reaction. The history is provided by the patient. No school speech language pathologist was used. Rash Review of Systems Constitutional: Negative. Skin: Positive for rash. Objective Physical Exam Constitutional: Appearance: Normal appearance. HENT: Head: Comments: Patient has slightly raised erythema in the area marked above. Nontender to touch. No drainage or blisters noted. No signs of infection. Pulmonary: Effort: Pulmonary effort is normal. Neurological: Mental Status: She is alert. PAST MEDICAL HISTORY Diagnosis Date Depression Familial tremor PAST SURGICAL HISTORY Procedure Laterality Date NONE ALLERGIES Sulfa (Sulfonamide Antibiotics) and Zoloft [Sertraline Hcl] MEDICATIONS predniSONE (DELTASONE) 10 mg tablet Take 4 tabs daily for 3 days, then 2 tabs daily for 3 days, then 1 tab daily for 3 days with food. benzonatate (TESSALON PERLES) 100 mg capsule Take 2 capsules by mouth three times daily as needed. (Patient not taking: Reported on 06/06/2022) PARoxetine (PAXIL) 20 mg tablet Take 1 tablet by mouth once daily. (Patient not taking: No sig reported) FAMILY HISTORY Problem Relation Age of Onset Heart Mother heart attack at age 50 Cancer Father Social History Tobacco Use Smoking status: Every Day Packs/day: 0.50 Years: 30.00 Pack years: 15.00 Types: Cigarettes Smokeless tobacco: Never Substance Use Topics Alcohol use: No Drug use: No ASSESSMENT/PLAN: 1. Contact dermatitis, unspecified contact dermatitis type, unspecified trigger - ICD9: 692.9, ICD10: L25.9 Was prescribed a 9-day steroid taper. Patient was educated about proper use of medication and supportive therapies. Patient was given strict red flag symptoms to watch for and when to report to the ER. Patient was understandable and care plan and was okay with care plan. Ayla Kruse APRN.CHRISTOPHER [facility] History of Present illness Narrative 06-06-2022 Ayla Kruse APRN.POULTRY BARN MANAGER - 06/06/2022 4:22 PM EDT Note Date & Type Note Facility 06-06-2022 History of Presen t illness Narrative Images from the original note were not included. Subjective Patient presents with a rash on the left side of her face. Patient says she woke up in the middle the night with it. Patient says its not painful but does feel tight. Patient says it feels a little warm at times. Patient denies any other symptoms at this time. Patient denies any new lotions creams soaps laundry detergents. Patient has not done anything new to cause the reaction. Patient's never had this kind of reaction. The history is provided by the patient. No school speech language pathologist was used. Rash Review of Systems Constitutional: Negative. Skin: Positive for rash. Objective Physical Exam Constitutional: Appearance: Normal appearance. HENT: Head: Comments: Patient has slightly raised erythema in the area marked above. Nontender to touch. No drainage or blisters noted. No signs of infection. Pulmonary: Effort: Pulmonary effort is normal. Neurological: Mental Status: She is alert. PAST MEDICAL HISTORY Diagnosis Date Depression Familial tremor PAST SURGICAL HISTORY Procedure Laterality Date NONE ALLERGIES Sulfa (Sulfonamide Antibiotics) and Zoloft [Sertraline Hcl] MEDICATIONS predniSONE (DELTASONE) 10 mg tablet Take 4 tabs daily for 3 days, then 2 tabs daily for 3 days, then 1 tab daily for 3 days with food. benzonatate (TESSALON PERLES) 100 mg capsule Take 2 capsules by mouth three times daily as needed. (Patient not taking: Reported on 06/06/2022) PARoxetine (PAXIL) 20 mg tablet Take 1 tablet by mouth once daily. (Patient not taking: No sig reported) FAMILY HISTORY Problem Relation Age of Onset Heart Mother heart attack at age 50 Cancer Father Social History Tobacco Use Smoking status: Every Day Packs/day: 0.50 Years: 30.00 Pack years: 15.00 Types: Cigarettes Smokeless tobacco: Never Substance Use Topics Alcohol use: No Drug use: No ASSESSMENT/PLAN: 1. Contact dermatitis, unspecified contact dermatitis type, unspecified trigger - ICD9: 692.9, ICD10: L25.9 Was prescribed a 9-day steroid taper. Patient was educated about proper use of medication and supportive therapies. Patient was given strict red flag symptoms to watch for and when to report to the ER. Patient was understandable and care plan and was okay with care plan. Ayla Kruse APRN.CNP documented in this encounter [facility] Progress note 10-18-2021 Note Date & Type Note Facility 10-18-2021 Note HNO ID: [id number] Author: RT Jp(R) Service: ? Author Type: Stock Holder Type: Progress Notes Filed: 10/18/2021 7:38 PM Note Text: Radiology Service Progress Note PATIENT NAME: Brandi Escobar DATE OF SERVICE: October 18, 2021 TIME: 7:29 PM PATIENT IDENTITY VERIFICATION COMPLETED USING TWO (2) IDENTIFIERS: Name and Date of confirmed by patient verbally. FALL SCREENING: Has the patient had 2 falls in the last year or 1 fall with injury or currently using an Ambulatory Assistive Device (Walker, Cane, Wheelchair, Crutches, etc.)? No PATIENT GENDER DATA: Female. status: : No status: NO. PATIENT RELEVANT IMPLANT DATA REVIEWED: Yes RADIOLOGY DEPARTMENT: General X-ray: Exam(s) Completed: Chest X-Ray PERIPHERAL IV DATA: Not applicable SIGNED BY: RT Jp(R) October 18, 2021 7:29 PM [facility] Progress note 10-18-2021 Note Date & Type Note Facility 10-18-2021 Note HNO ID: [id number] Author: Marley Hussein PA-C Service: ? Author Type: Physician Display Fabricator Type: Progress Notes Filed: 10/18/2021 7:56 PM Note Text: This note was created using ShieldEffectriter. Subjective Brandi Escobar is a 70 year old female. HPI Patient presents with a chief complaint of sore throat, cough, fever, headache and body aches over the past 4 to 5 days. Temp here is 101.3. She was seen at another urgent care and tested negative for COVID a few days ago. She states the sore throat has improved some but is still painful. She denies chest pain or shortness of breath. She is a former smoker having quit in 2019. She denies vomiting or diarrhea. Review of Systems Constitutional: Positive for chills, fatigue and fever. HENT: Positive for congestion, rhinorrhea and sore throat. Negative for ear pain. Respiratory: Positive for cough and wheezing. Negative for shortness of breath. Cardiovascular: Negative. Gastrointestinal: Negative. Genitourinary: Negative. Musculoskeletal: Positive for myalgias. Neurological: Positive for headaches. All other systems reviewed and are negative. PAST MEDICAL HISTORY Diagnosis Date Depression Familial tremor Current Outpatient Medications Medication Sig Dispense Refill PARoxetine (PAXIL) 20 mg tablet Take 1 tablet by mouth once daily. (Patient not taking: Reported on 10/18/2021) 90 tablet 3 No current facility-administered medications for this visit. PAST SURGICAL HISTORY Procedure Laterality Date NONE FAMILY HISTORY Problem Relation Age of Onset Heart Mother heart attack at age 50 Cancer Father Social History Tobacco Use Smoking status: Every Day Packs/day: 0.50 Years: 30.00 Pack years: 15.00 Types: Cigarettes Smokeless tobacco: Never Substance Use Topics Alcohol use: No Drug use: No Objective BP 122/78 Pulse 114 Temp (!) 38.5 ?C (101.3 ?F) Resp 20 Wt 99.6 kg (219 lb 9.6 oz) SpO2 96% BMI 37.69 kg/m? Physical Exam Vitals reviewed. Constitutional: Appearance: Normal appearance. HENT: Head: Normocephalic and atraumatic. Right Ear: Tympanic membrane, ear canal and external ear normal. Left Ear: Tympanic membrane, ear canal and external ear normal. Nose: Congestion present. Mouth/Throat: Mouth: Mucous membranes are moist. Pharynx: Posterior oropharyngeal erythema present. No oropharyngeal exudate. Cardiovascular: Rate and Rhythm: Normal rate and regular rhythm. Heart sounds: Normal heart sounds. Pulmonary: Effort: Pulmonary effort is normal. Breath sounds: Wheezing and rhonchi present. Musculoskeletal: Cervical back: Neck supple. Lymphadenopathy: Cervical: No cervical adenopathy. Skin: General: Skin is warm and dry. Findings: No rash. Neurological: General: No focal deficit present. Mental Status: She is alert and oriented to person, place, and time. Assessment and Plan ASSESSMENT/PLAN: 1. Acute cough - ICD9: 786.2, ICD10: R05.1 (primary diagnosis) Chest x-ray shows no pneumonia. She does however have rhonchi and wheezes and a fever on day 5. I will cover empirically with doxycycline. Given prednisone as well for the wheeze. Mucinex and Tessalon. Follow-up with PCP if not improving. I did repeat the COVID test. Her strep here was negative. - XR CHEST 2V FRONTAL/LAT - 2019 CORONAVIRUS 2. Sore throat - ICD9: 462, ICD10: J02.9 - Alere Strep Test strep, no culture pending - STREP A MOLECULAR (POC) Marley Hussein PA-C [facility] History of Present illness Narrative 10-18-2021 Marley Hussein PA-C - 10/18/2021 7:23 PM EDT Note Date & Type Note Facility 10-18-2021 History of Presen t illness Narrative This note was created using Joobili. Subjective Brandi Escobar is a 70 year old female. HPI Patient presents with a chief complaint of sore throat, cough, fever, headache and body aches over the past 4 to 5 days. Temp here is 101.3. She was seen at another urgent care and tested negative for COVID a few days ago. She states the sore throat has improved some but is still painful. She denies chest pain or shortness of breath. She is a former smoker having quit in 2019. She denies vomiting or diarrhea. Review of Systems Constitutional: Positive for chills, fatigue and fever. HENT: Positive for congestion, rhinorrhea and sore throat. Negative for ear pain. Respiratory: Positive for cough and wheezing. Negative for shortness of breath. Cardiovascular: Negative. Gastrointestinal: Negative. Genitourinary: Negative. Musculoskeletal: Positive for myalgias. Neurological: Positive for headaches. All other systems reviewed and are negative. PAST MEDICAL HISTORY Diagnosis Date Depression Familial tremor Current Outpatient Medications Medication Sig Dispense Refill PARoxetine (PAXIL) 20 mg tablet Take 1 tablet by mouth once daily. (Patient not taking: Reported on 10/18/2021) 90 tablet 3 No current facility-administered medications for this visit. PAST SURGICAL HISTORY Procedure Laterality Date NONE FAMILY HISTORY Problem Relation Age of Onset Heart Mother heart attack at age 50 Cancer Father Social History Tobacco Use Smoking status: Every Day Packs/day: 0.50 Years: 30.00 Pack years: 15.00 Types: Cigarettes Smokeless tobacco: Never Substance Use Topics Alcohol use: No Drug use: No Objective BP 122/78 Pulse 114 Temp (!) 38.5 C (101.3 F) Resp 20 Wt 99.6 kg (219 lb 9.6 oz) SpO2 96% BMI 37.69 kg/m Physical Exam Vitals reviewed. Constitutional: Appearance: Normal appearance. HENT: Head: Normocephalic and atraumatic. Right Ear: Tympanic membrane, ear canal and external ear normal. Left Ear: Tympanic membrane, ear canal and external ear normal. Nose: Congestion present. Mouth/Throat: Mouth: Mucous membranes are moist. Pharynx: Posterior oropharyngeal erythema present. No oropharyngeal exudate. Cardiovascular: Rate and Rhythm: Normal rate and regular rhythm. Heart sounds: Normal heart sounds. Pulmonary: Effort: Pulmonary effort is normal. Breath sounds: Wheezing and rhonchi present. Musculoskeletal: Cervical back: Neck supple. Lymphadenopathy: Cervical: No cervical adenopathy. Skin: General: Skin is warm and dry. Findings: No rash. Neurological: General: No focal deficit present. Mental Status: She is alert and oriented to person, place, and time. Assessment and Plan ASSESSMENT/PLAN: 1. Acute cough - ICD9: 786.2, ICD10: R05.1 (primary diagnosis) Chest x-ray shows no pneumonia. She does however have rhonchi and wheezes and a fever on day 5. I will cover empirically with doxycycline. Given prednisone as well for the wheeze. Mucinex and Tessalon. Follow-up with PCP if not improving. I did repeat the COVID test. Her strep here was negative. - XR CHEST 2V FRONTAL/LAT - 2019 CORONAVIRUS 2. Sore throat - ICD9: 462, ICD10: J02.9 - Alere Strep Test strep, no culture pending - STREP A MOLECULAR (POC) Marley Hussein PA-C documented in this encounter [facility] Evaluation note Note Date & Type Note Facility documented in this encounter [facility] Evaluation note Note Date & Type Note Facility documented in this encounter [facility] Health Concerns Infection Onset Date Last Indicated Resolved Time COVID-19 Rule-Out 10/18/2021 10/18/2021 Summary Purpose Family History No Family History Records Found Advance Directives No Advanced Directives Records Found Additional Source Comments Source Comments (unrecognize d section and content) In the event this informatio n is protected by the Federal Confidentiality of Alcohol and Drug Abuse Patient Records regulations: The Federal rules restrict any use of the information to criminally investigate or prosecute any alcohol or drug abuse patient.[facility] the event this information is protected by the Federal Confidentiality of Alcohol and Drug Abuse Patient Records regulations: The Federal rules restrict any use of the information to criminally investigate or prosecute any alcohol or drug abuse patient.[facility] the event this information is protected by the Federal Confidentiality of Alcohol and Drug Abuse Patient Records regulations: The Federal rules restrict any use of the information to criminally investigate or prosecute any alcohol or drug abuse patient.[facility] Reason for Visit (unrecogniz ed section and content) Reason Comments Rash L side of face red a nd swollen, hot to touch x last night Reason Onset Date Comments [facility] Health Navigation Outreach 07/17/2022 ACO No PCP list INFORMATION SOURCE (unrecogn ized section and content) FOR RECORDS PERTAINING TO PATIENTS WHO ARE OR HAVE BEEN ENROLLED IN A CHEMICAL DEPENDENCY/SUBSTANCEABUSE PROGRAM, SOME INFORMATION MAY BE OMITTED. This clinical summary was aggregated from multiple sources. Caution should be exercised in using it in the provision of clinical care. This summary normalizes information from multiple sources, and as a consequence, information in this document may materially change the coding, format and clinical context of patient data. In addition, data may be omitted in some cases. CLINICAL DECISIONS SHOULD BE BASED ON THE PRIMARY CLINICAL RECORDS. [facility]. provides no warranty or guarantee of the accuracy or completeness of information in this document.
[2023-04-10 12:06] LABS: Absolute Lymphocyte Count 2.11 X10^3/uL (0.83-4.51); Absolute Neutrophil Count 2.9 X10^3/uL (2.0-7.7); Basophil# 0.06 X10^3/uL; Basophil% 1.1 % (0-1); Eosinophils% 3.5 % (0-5); Hematocrit 46.4 % (37-47); Hemoglobin 15.1 g/dL (12.0-15.0); Lymphocyte # 2.11 X10^3/ul (0.83-4.51); Lymphocyte % 37.3 % (19-41); Mean Corp Hgb Conc 32.5 g/dL (32-36); Mean Corpuscular Hgb 30.4 pg (27.0-32.0); Mean Corpuscular Volume 93.5 fL (81-99); Mean Platelet Vol. 10.3 fl (6.2-12.0); Monocyte# 0.42 X10^3/uL; Monocyte% 7.4 % (0-10); NRBC Flagged by Analyzer 0 % (0-5); Neutrophil # 2.86 X10^3/uL (2.7-7.7); Neutrophil % 50.5 % (47-70); Platelet Count 235 K/mm3 (150-450); RBC Distribution Width CV 12.3 % (11.6-14.6); RBC Distribution Width SD 42.6 fl (35.1-43.9); Red Blood Count 4.96 M/mm3 (4.2-5.4); White Blood Count 5.7 K/mm3 (4.4-11.0)
[2023-04-10 12:22] LABS: Vitamin D,25 Hydroxy 11.7 ng/mL
[2023-04-10 12:27] LABS: ALB/GLOB Ratio 1.2 RATIO (0.9-2.4); AST(SGOT) 20 U/L (15-37); Alanine Aminotransfer ALT/SGPT 32 U/L (13-56); Albumin, Serum 3.8 g/dL (3.2-5.0); Alkaline Phosphatase 99 U/L (45-117); Anion Gap 6 (5-15); BUN 16 mg/dL (7-18); BUN/Creat Ratio 17.4 RATIO (10-20); Calcium,Total 10.4 mg/dL (8.5-10.1); Chloride 112 mmol/L (98-107); Creatinine, Serum 0.92 mg/dL (0.55-1.02); EST Glomerular Filtration Rate 64 mL/min (>60); Est Glom Filt Rate - Afr Amer 78 mL/min (>60); Globulin 3.2 g/dL (2.2-4.2); Glucose 103 mg/dL (74-106); Sodium Level 142 mmol/L (136-145); Thyroid Stim Hormone (TSH) 2.04 uIU/mL (0.358-3.74)
== END | disposition home or self-care (01) ==
LOC: POLAB3 10:24
PROVIDERS: PCP Family Medicine Geriatric Medicine; Visit Provider Family Medicine Geriatric Medicine
DX: R53.83 Other fatigue (principal); E55.9 Vitamin D deficiency, unspecified
CPT/HCPCS: 36415; 80053; 82306; 84443; 85025

== ENCOUNTER → 2023-05-01 | Outpatient (CLI) | payer MEDICARE, OTHER, SELFPAY ==
--- NOTE | 2023-05-01 16:14 | US_ITS ---
EXAM: US SOFT TISSUES HEAD AND NECK, THYROID CLINICAL INDICATION: Hyperparathyroidism TECHNIQUE: Greyscale and color doppler imaging was performed of the thyroid gland. COMPARISON: Nuclear medicine parathyroid scan, 03/14/2023 FINDINGS: LEFT THYROID LOBE: The left thyroid lobe measures 4.7 x 1.5 x 1.9 cm. Left thyroid nodule measuring 0.7 cm. This nodule is solid or almost completely solid, hypoechoic, fpjxi-quzx-nvpj, smoothly marginated and contains no echogenic foci. TI-RADS points: 4. TI-RADS category: TR4. This nodule is moderately suspicious but no FNA or follow-up is necessary given the small size of this nodule. Left thyroid nodule measuring 1.4 cm. This nodule is solid or almost completely solid, hyperechoic or isoechoic, zclfw-cddj-sqsp, smoothly marginated and contains no echogenic foci. TI-RADS points: 3. TI-RADS category: TR3. This nodule is mildly suspicious but no FNA or follow-up is necessary given the small size of this nodule. RIGHT THYROID LOBE: 1.5 x 0.9 x 0.7 cm nodule posterior to the right thyroid lobe in the mid to lower pole perhaps correlating with the parathyroid scan and perhaps indicative of a parathyroid adenoma. The right thyroid lobe measures 5.1 x 1.8 x 2.1 cm. 0.8 cm right posterior/superior to mid thyroid nodule. This nodule is solid or almost completely solid, hypoechoic, ftpul-nqhh-pxpt, ill-defined and contains no echogenic foci. TI-RADS points: 4. TI-RADS category: TR4. This nodule is moderately suspicious but no FNA or follow-up is necessary given the small size of this nodule. 1.8 x 0.8 x 1.4 cm mid right thyroid nodule. This nodule is solid or almost completely solid, very hypoechoic, qamfq-ozcl-isga, smoothly marginated and contains no echogenic foci. TI-RADS points: 5. TI-RADS category: TR4. This nodule is moderately suspicious. Recommend FNA evaluation. 0.8 cm mid right thyroid nodule. This nodule is solid or almost completely solid, hyperechoic or isoechoic, [id number]-kpkl-vmdf, ill-defined and contains no echogenic foci. TI-RADS points: 3. TI-RADS category: TR3. This nodule is mildly suspicious but no FNA or follow-up is necessary given the small size of this nodule. ISTHMUS: The thyroid isthmus measures 0.44 cm. No thyroid nodules are present. US/Thyroid IMPRESSION: 1. 1.5 x 0.9 x 0.7 cm nodule posterior to the right thyroid lobe in the mid to lower pole perhaps correlating with the parathyroid scan and perhaps indicative of a parathyroid adenoma. 2. Multiple thyroid nodules bilaterally. Recommend FNA of the 1.8 cm mid right thyroid nodule. Electronically Signed: Serafin Keyes DO at 23:53 EST ,
--- OUTSIDE RECORDS SUMMARY | 2023-05-01 19:49 | XMS RPT_ITS | CCD ---
Author Name Unknown Address [address] [place] [address] Organization [facility] Care Team Providers Care Gum Machine Operator Name Role Phone Unavailable Primary Care Provider MARLEY Mustafa Referring Unavailable Allergies Allergy Classification Reported Allergen(s) Allergy Type Date of Onset Reaction(s) Facility (4 sources) Sertraline; Translations: [SERTRALINE HCL] Drug Allergy 4 Mental Status Change [facility] Work Phone: (4 sources) Sulfonamides (Antibiotic); Translations: [SULFA (SULFONAMIDE ANTIBIOTICS)] Propensity to adverse reactions 6 Itching, Anaphylaxis [facility] Work Phone: Medications Current Medications Medication [...] 16:06-0400 Body temperature 98.49 [degF] Ayla Kruse APRN.CYBER INCIDENT HANDLER Work Phone: [facility] 06-06-2022 16:06-0400 Body weight 99.79 kg Ayla Kruse APRN.CYBER INCIDENT HANDLER Work Phone: [facility] 06-06-2022 16:06-0400 Diastolic blood pressure 80 mm[Hg] Ayla Kruse APRN.CYBER INCIDENT HANDLER Work Phone: [facility] 06-06-2022 16:06-0400 Heart rate 95 /min Ayla Kruse APRN.CYBER INCIDENT HANDLER Work Phone: [facility] 06-06-2022 16:06-0400 Respiratory rate 18 /min Ayla Kruse APRN.CYBER INCIDENT HANDLER Work Phone: [facility] 06-06-2022 16:06-0400 SaO2% (BldA) [Mass fraction] 97 % Ayla Kruse APRN.CYBER INCIDENT HANDLER Work Phone: [facility] 06-06-2022 16:06-0400 Systolic blood pressure 124 mm[Hg] Ayla Kruse APRN.CYBER INCIDENT HANDLER Work Phone: [facility] 10-18-2021 18:59-0400 Body temperature 101.3 [degF] Marley Hussein PA-C Work Phone: [facility] 10-18-2021 18:59-0400 Body weight 99.61 kg Marley Hussein PA-C Work Phone: [facility] 10-18-2021 18:59-0400 Diastolic blood pressure 78 mm[Hg] Marley Hussein PA-C Work Phone: [facility] 10-18-2021 18:59-0400 Heart rate 114 /min Marley Hussein PA-C Work Phone: [facility] 10-18-2021 18:59-0400 Respiratory rate 20 /min Marley Hussein PA-C Work Phone: [facility] 10-18-2021 18:59-0400 SaO2% (BldA) [Mass fraction] 96 % Marley Hussein PA-C Work Phone: [facility] 10-18-2021 18:59-0400 Systolic blood pressure 122 mm[Hg] Marley Hussein PA-C Work Phone: [facility] Encounters Encounter Date Encounter Type Care Provider Facility Start: 07-17-2022 ambulatory Eileen Knight MA [facility] Procedures Date Procedure Procedure Detail Performing Clinician Start: 10-18-2021 STREP A MOLECULAR (POC) Marley Hussein PA-C Work Phone: Plan of Treatment Date Care Activity Detail Author Start: 12-29-2023 Urine microalbumin profile DTAP,TDAP,TD (2 - Td or Tdap) [facility] Start: 03-11-2022 ADVANCE DIRECTIVE DISCUSSION ADVANCE DIRECTIVE DISCUSSION [facility] Start: 11-09-2021 Influenza vaccination INFLUENZA (#1) [facility] Start: 10-18-2021 End: 11-01-2021 SARS-CoV-2 (COVID-19) RNA [Presence] in Respiratory specimen by SHIRA with probe detection [facility] Work Phone: Immunizations Immunization Date Immunization Notes Care Provider Viatliy chan 12-28-2013 tetanus toxoid, redu kristi diphtheria toxoid, and acellular pertussis vaccine, adsorbed Marley OSCAR-Alejandra Work Phone: [facility] 11-30-2013 influenza, seasonal, injectable Marley Hussein PA-C Work Phone: [facility] 11-30-2013 pneumococcal polysaccharide vaccine, 23 valent Marley Hussein PA-C Work Phone: [facility] Payers Date Payer Category Payer Unknown [employer] [id number] 2017-Present [phone] [address] [place] [address] Indemnity [id number] 2017 Unknown [id number] 2017 Medicare MEDICARE MEDICAR E A AND B [id number] 2017-Present [phone] [place] [address] Medicare [id number] 2017 Medicare [id number] Social History Date Type Detail Facility Start: [facility]-18[facility]2021 [facility] History of tobacco use Cigarette Smoker [facility] Start: 10-18-2021 Cigarettes smoked cu rrent (pack per day) - Reported 0.5 [facility] Start: 10-18-2021 Tobacco use and exposure Smoke less tobacco non-user [facility] Start: 10-18-2021 End: 06-06-2022 Alcohol intake Current non-drinker of alcohol (finding) [facility] Start: 1950 Sex Assigned At Not on file [facility] Clinical Note 07-17-2022 Note Date & Type Note Facility 07-17-2022 Note Patient Outreach (MIN TNAV) BRANDI ESCOBAR ([id number]) 1950 F Date Time Provider Department 07/17/22 [...] Encounter Status:Closed by EILEEN KNIGHT on 07/17/22 [facility] Progress note 07-17-2022 Note Date & Type Note Facility 07-17-2022 Note HNO ID: [id number] Author: Eileen Knight MA Service: ? Author Type: Bath Tester Type: Progress Notes Filed: 07/17/2022 11:34 AM [...] Knight MA July 17, 2022 11:34 AM [facility] History of Present illness Narrative 07-17-2022 Eileen [...] 2022 11:34 AM documented in this encounter [facility] Progress note 06-06-2022 Note Date & Type Note Facility 06-06-2022 Note HNO ID: [id number] Author: Ayla Kruse APRN.CYBER INCIDENT HANDLER Service: ? Author Type: Nurse Practitioner Type: [...] history is provided by the patient. No english as a second language instructor was used. Rash Review of Systems Constitutional: [...] okay with care plan. Ayla Kruse APRN.CHRISTOPHER [facility] History of Present illness Narrative 06-06-2022 Ayla Kruse APRN.CYBER INCIDENT HANDLER - 06/06/2022 4:22 PM EDT Note Date [...] history is provided by the patient. No english as a second language instructor was used. Rash Review of Systems Constitutional: [...] Ayla Kruse APRN.CNP documented in this encounter [facility] Progress note 10-18-2021 Note Date & Type Note Facility 10-18-2021 Note HNO ID: [id number] Author: RT Jp(R) Service: ? Author Type: Stone Setter [employer] Type: Progress Notes Filed: 10/18/2021 7:38 PM [...] RT Jp(R) October 18, 2021 7:29 PM [facility] Progress note 10-18-2021 Note Date & Type Note Facility 10-18-2021 Note HNO ID: [id number] Author: Marley Hussein PA-C Service: ? Author Type: Physician Warehouse Operator Type: Progress Notes Filed: 10/18/2021 7:56 PM Note Text: This note was created using [employer]acer[employer]. Subjective Brandi Escobar is a 70 year [...] STREP A MOLECULAR (POC) Marley Hussein PA-C [facility] History of Present illness Narrative 10-18-2021 Marley Hussein PA-C - 10/18/2021 7:23 PM EDT Note Date & Type Note Facility 10-18-2021 History of Presen t illness Narrative This note was created using olook. Subjective Brandi Escobar is a 70 year [...] Marley Hussein PA-C documented in this encounter [facility] Evaluation note Note Date & Type Note Facility documented in this encounter [facility] Evaluation note Note Date & Type Note Facility documented in this encounter [facility] Health Concerns Infection Onset Date Last [...] or prosecute any alcohol or drug abuse patient.[facility] the event this information is protected by the Federal Confidentiality of Alcohol and Drug Abuse Patient Records regulations: The Federal rules restrict any use of the information to criminally investigate or prosecute any alcohol or drug abuse patient.[facility] the event this information is protected by the Federal Confidentiality of Alcohol and Drug Abuse Patient Records regulations: The Federal rules restrict any use of the information to criminally investigate or prosecute any alcohol or drug abuse patient.[facility] Reason for Visit (unrecogniz ed section and content) Reason Comments Rash L side of face red a nd swollen, hot to touch x last night Reason Onset Date Comments [facility] Navigation Outreach 07/17/2022 ACO No PCP [...] BE BASED ON THE PRIMARY CLINICAL RECORDS. [facility] [employer] [facility]. provides no warranty or guarantee of the accuracy or completeness of information in this document.
== END | disposition home or self-care (01) ==
LOC: US 16:13
PROVIDERS: PCP Family Medicine Geriatric Medicine; Referring Provider Surgery; Visit Provider Surgery
DX: E21.3 Hyperparathyroidism, unspecified (principal); E55.9 Vitamin D deficiency, unspecified
CPT/HCPCS: 76536

== ENCOUNTER → 2023-06-26 | Outpatient (CLI) | payer MEDICARE, OTHER, SELFPAY ==
--- NOTE | 2023-06-26 13:00 | FLU_PTH ---
PATIENT: BRANDI ESCOBAR LOC: [facility] U#:[id number] AGE/SX: 72/F ROOM: RE06/26/[address]: Dr. Rolando Naranjo MD : 1950 BED: DIS: 06/26/2023 SPEC #: [id number] RECD: 06/26/23 14:33 STATUS: LINUS REHeidi #: [id number] CECY: 06/26/23 13:[address]: Rolando Naranjo DEPT: CYTOLOGY RECD BY: Jen Reeves ENTERED: 06/27/23 08:07 SP TYPE: Fluid OTHR DR: Dr. Rohan Mcgrath MD Tissues: A - Thyroid gland, NOS B - Thyroid gland, NOS Procedures: Special Stain Group II Surgery Specimen Level IV Cytospin Fluid Cytology Other HEADER OPERATION: Fine needle aspiration of thyroid nodule PRE-OP DIAGNOSIS: Hyperparathyroidism TISSUE SUBMITTED: A- Mid right thyroid nodule fluid, B- Mid right thyroid nodule smears DIAGNOSIS CYTOLOGY A. Fine needle aspiration, right mid thyroid nodule (cytospin and cellblock): Consistent with benign follicular nodule ([place] Category II). B. Fine needle aspiration, right mid thyroid nodule (smears): Consistent with benign follicular nodule ([place] Category II). /mr 06/28/2023 COMMENT A&B. The [place] System for thyroid diagnostic categorization was used in the evaluation of this case. The specimen is adequate for evaluation. CYTOLOGY STUDY Slides are reviewed. CYTOLOGY GROSS A. Received is 30 ml of red cloudy fluid labeled with the patient's name and and designated per the requisition as Mid right thyroid nodule. Submitted for cytology preparation including cell block. B. Received are 4 smears labeled with the patient's name and designated per the requisition as Mid right thyroid nodule. Submitted for staining. Mr 06/27/2023 TC:5 CPT: 33677, 62548
== END | disposition home or self-care (01) ==
LOC: LABSPEC 14:37
PROVIDERS: PCP Family Medicine Geriatric Medicine; Referring Provider Surgery; Visit Provider Surgery
DX: E21.3 Hyperparathyroidism, unspecified (principal)
CPT/HCPCS: 88108; 88161; 88305; 88313

== ENCOUNTER → 2023-07-09 | Outpatient (CLI) | payer MEDICARE, OTHER, SELFPAY ==
[2023-07-09 12:48] LABS: Absolute Lymphocyte Count 1.85 X10^3/uL (0.83-4.51); Absolute Neutrophil Count 3.1 X10^3/uL (2.0-7.7); Basophil# 0.06 X10^3/uL; Basophil% 1.1 % (0-1); Eosinophil# 0.24 X10^3/uL; Eosinophils% 4.2 % (0-5); Hematocrit 44.5 % (37-47); Hemoglobin 14.6 g/dL (12.0-15.0); Lymphocyte # 1.85 X10^3/ul (0.83-4.51); Lymphocyte % 32.6 % (19-41); Mean Corp Hgb Conc 32.8 g/dL (32-36); Mean Corpuscular Hgb 30.5 pg (27.0-32.0); Mean Corpuscular Volume 92.9 fL (81-99); Mean Platelet Vol. 10.2 fl (6.2-12.0); Monocyte# 0.38 X10^3/uL; Monocyte% 6.7 % (0-10); NRBC Flagged by Analyzer 0 % (0-5); Neutrophil # 3.13 X10^3/uL (2.7-7.7); Platelet Count 219 K/mm3 (150-450); RBC Distribution Width CV 12.3 % (11.6-14.6); RBC Distribution Width SD 42.5 fl (35.1-43.9); Red Blood Count 4.79 M/mm3 (4.2-5.4); White Blood Count 5.7 K/mm3 (4.4-11.0)
[2023-07-09 13:31] LABS: Vitamin D,25 Hydroxy 10.3 ng/mL
[2023-07-09 13:42] LABS: ALB/GLOB Ratio 1.1 RATIO (0.9-2.4); AST(SGOT) 20 U/L (15-37); Alanine Aminotransfer ALT/SGPT 29 U/L (13-56); Albumin, Serum 3.7 g/dL (3.2-5.0); Alkaline Phosphatase 99 U/L (45-117); Anion Gap 4 (5-15); BUN 18 mg/dL (7-18); BUN/Creat Ratio 18.7 RATIO (10-20); Calcium,Total 10.9 mg/dL (8.5-10.1); Chloride 109 mmol/L (98-107); Creatinine, Serum 0.96 mg/dL (0.55-1.02); EST Glomerular Filtration Rate 61 mL/min (>60); Est Glom Filt Rate - Afr Amer 73 mL/min (>60); Globulin 3.3 g/dL (2.2-4.2); Glucose 105 mg/dL (74-106); Potassium 4.2 mmol/L (3.5-5.1); Sodium Level 140 mmol/L (136-145); Thyroid Stim Hormone (TSH) 1.35 uIU/mL (0.358-3.74)
== END | disposition home or self-care (01) ==
LOC: POLAB3 11:47
PROVIDERS: PCP Family Medicine Geriatric Medicine; Visit Provider Family Medicine Geriatric Medicine
DX: R53.83 Other fatigue (principal); E55.9 Vitamin D deficiency, unspecified
CPT/HCPCS: 36415; 80053; 82306; 84443; 85025

== ENCOUNTER → 2023-10-03 | Outpatient (CLI) | payer MEDICARE, OTHER, SELFPAY ==
[2023-10-03 13:02] LABS: Vitamin D,25 Hydroxy 41.3 ng/mL
[2023-10-03 13:08] LABS: PTHIN 129.1 pg/mL (18.4-80.1)
[2023-10-03 13:22] LABS: ALB/GLOB Ratio 1.1 RATIO (0.9-2.4); AST(SGOT) 21 U/L (15-37); Alanine Aminotransfer ALT/SGPT 32 U/L (13-56); Albumin, Serum 3.6 g/dL (3.2-5.0); Alkaline Phosphatase 97 U/L (45-117); Anion Gap 3 (5-15); BUN 18 mg/dL (7-18); Calcium,Total 10.1 mg/dL (8.5-10.1); Chloride 110 mmol/L (98-107); Creatinine, Serum 1.06 mg/dL (0.55-1.02); EST Glomerular Filtration Rate 54 mL/min (>60); Est Glom Filt Rate - Afr Amer 66 mL/min (>60); Globulin 3.3 g/dL (2.2-4.2); Glucose 95 mg/dL (74-106); Potassium 4.2 mmol/L (3.5-5.1); Protein, Total 6.9 g/dL (6.4-8.2); Sodium Level 140 mmol/L (136-145)
[2023-10-07 12:58] LABS: Thyroid Stim Hormone (TSH) 1.26 uIU/mL (0.358-3.74)
== END | disposition home or self-care (01) ==
PROVIDERS: PCP Family Medicine Geriatric Medicine; Referring Provider Internal Medicine Endocrinology, Diabetes & Metabolism; Visit Provider Internal Medicine Endocrinology, Diabetes & Metabolism
DX: R53.83 Other fatigue (principal); E55.9 Vitamin D deficiency, unspecified
CPT/HCPCS: 36415; 80053; 82306; 83970; 84443

== ENCOUNTER → 2024-01-06 | Outpatient (CLI) | payer MEDICARE, OTHER, SELFPAY ==
[2024-01-06 12:40] LABS: Absolute Lymphocyte Count 1.78 X10^3/uL (0.83-4.51); Absolute Neutrophil Count 2.7 X10^3/uL (2.0-7.7); Basophil# 0.05 X10^3/uL; Eosinophil# 0.28 X10^3/uL; Eosinophils% 5.4 % (0-5); Hematocrit 43.8 % (37-47); Hemoglobin 14.7 g/dL (12.0-15.0); Lymphocyte # 1.78 X10^3/ul (0.83-4.51); Mean Corp Hgb Conc 33.6 g/dL (32-36); Mean Corpuscular Hgb 31.1 pg (27.0-32.0); Mean Corpuscular Volume 92.6 fL (81-99); Mean Platelet Vol. 10.2 fl (6.2-12.0); Monocyte# 0.44 X10^3/uL; Monocyte% 8.4 % (0-10); NRBC Flagged by Analyzer 0 % (0-5); Neutrophil # 2.67 X10^3/uL (2.7-7.7); Platelet Count 225 K/mm3 (150-450); RBC Distribution Width CV 12.2 % (11.6-14.6); RBC Distribution Width SD 41.6 fl (35.1-43.9); Red Blood Count 4.73 M/mm3 (4.2-5.4); White Blood Count 5.2 K/mm3 (4.4-11.0)
[2024-01-06 13:11] LABS: ALB/GLOB Ratio 1.2 RATIO (0.9-2.4); AST(SGOT) 21 U/L (15-37); Alanine Aminotransfer ALT/SGPT 28 U/L (13-56); Albumin, Serum 3.7 g/dL (3.2-5.0); Alkaline Phosphatase 108 U/L (45-117); Anion Gap 1 (5-15); BUN 19 mg/dL (7-18); BUN/Creat Ratio 20.2 RATIO (10-20); Calcium,Total 10.6 mg/dL (8.5-10.1); Chloride 110 mmol/L (98-107); Creatinine, Serum 0.94 mg/dL (0.55-1.02); EST Glomerular Filtration Rate 62 mL/min (>60); Est Glom Filt Rate - Afr Amer 75 mL/min (>60); Globulin 3.2 g/dL (2.2-4.2); Glucose 96 mg/dL (74-106); Potassium 4.2 mmol/L (3.5-5.1); Protein, Total 6.9 g/dL (6.4-8.2); Sodium Level 139 mmol/L (136-145)
== END | disposition home or self-care (01) ==
LOC: LAB 11:41
PROVIDERS: PCP Family Medicine Geriatric Medicine; Referring Provider Family Medicine Geriatric Medicine; Visit Provider Family Medicine Geriatric Medicine
DX: E55.9 Vitamin D deficiency, unspecified (principal); R53.83 Other fatigue
CPT/HCPCS: 36415; 80053; 82306; 84443; 85025

== ENCOUNTER → 2024-03-27 | Outpatient (CLI) | payer MEDICARE, OTHER, SELFPAY ==
--- NOTE | 2024-03-27 11:47 | RAD_ITS ---
STUDY: X-RAY - UNILATERAL RIBS ( LEFT ) REASON FOR EXAM: Female, 73 years old. Left-sided arm and rib pain following a fall. TECHNIQUE: 4 view(s) of the ribs. COMPARISON: None. FINDINGS: There is a nondisplaced fracture of the left sixth and seventh ribs anterolaterally. Mild degree of left basilar atelectasis. Status post left reverse shoulder replacement. RAD/Ribs Unil 2V No CXR IMPRESSION: Nondisplaced fracture of the left sixth and seventh ribs anterolaterally. Mild left basilar atelectasis. Electronically Signed: Leno Torres MD at 12:29 EST ,
== END | disposition home or self-care (01) ==
PROVIDERS: PCP Family Medicine Geriatric Medicine; Referring Provider Physician Assistant Surgical; Visit Provider Physician Assistant Surgical
DX: R07.81 Pleurodynia (principal)
CPT/HCPCS: 71100

== ENCOUNTER → 2024-07-07 | Outpatient (CLI) | payer MEDICARE, OTHER, SELFPAY ==
[2024-07-07 12:14] LABS: Bacteria 0 SEEN /hpf (None Seen); Mucous, Urine 0 SEEN /hpf (<or=2+)
[2024-07-07 12:16] LABS: Absolute Lymphocyte Count 2.08 X10^3/uL (0.83-4.51); Absolute Neutrophil Count 2.8 X10^3/uL (2.0-7.7); Basophil# 0.08 X10^3/uL; Basophil% 1.4 % (0-1); Eosinophils% 3.5 % (0-5); Hematocrit 44.3 % (37-47); Hemoglobin 14.9 g/dL (12.0-15.0); Lymphocyte # 2.08 X10^3/ul (0.83-4.51); Lymphocyte % 36.8 % (19-41); Mean Corp Hgb Conc 33.6 g/dL (32-36); Mean Corpuscular Hgb 31.3 pg (27.0-32.0); Mean Corpuscular Volume 93.1 fL (81-99); Mean Platelet Vol. 10.1 fl (6.2-12.0); Monocyte# 0.45 X10^3/uL; NRBC Flagged by Analyzer 0 % (0-5); Neutrophil # 2.82 X10^3/uL (2.7-7.7); Neutrophil % 49.9 % (47-70); Platelet Count 211 K/mm3 (150-450); RBC Distribution Width CV 12.4 % (11.6-14.6); RBC Distribution Width SD 42.7 fl (35.1-43.9); Red Blood Count 4.76 M/mm3 (4.2-5.4); White Blood Count 5.7 K/mm3 (4.4-11.0)
[2024-07-07 12:22] LABS: Color, Urine Yellow (Yellow); Glucose, Dipstick Normal (Normal); Ketone-Dipstick Negative (Negative); Leukocyte Esterase-Dipstick 500 /ul (Negative); Nitrite-Dipstick Negative (Negative); Occult Blood-Urine 10 /ul (Negative); Protein-Dipstick 15 mg/dl (Negative); Urine Bilirubin Dipstick Negative (Negative); Urine Clarity Clear (Clear); Urine Urobilinogen Normal (Normal)
[2024-07-07 12:34] LABS: Squamous Epithelial Cells - UA 10-25 SEEN /hpf (5-10)
[2024-07-07 12:37] LABS: Red Blood Cells-Urine 0-5 SEEN /hpf (0-5); White Blood Cells 0-5 SEEN /hpf (0-5)
[2024-07-07 13:09] LABS: ALB/GLOB Ratio 1.8 RATIO (0.9-2.4); AST(SGOT) 25 U/L (<=31); Alanine Aminotransfer ALT/SGPT 20 U/L (<=34); Albumin, Serum 4.2 g/dL (3.4-4.8); Alkaline Phosphatase 104 U/L (35-104); Anion Gap 9 (5-15); BUN 14 mg/dL (4-19); BUN/Creat Ratio 14.1 RATIO (10-20); Calcium,Total 10.8 mg/dL (7.6-11.0); Carbon Dioxide 24.6 mmol/L (21.0-32.0); Chloride 108 mmol/L (98-108); EST Glomerular Filtration Rate 60 (>60); Globulin 2.4 g/dL (2.2-4.2); Glucose 91 mg/dL (70-99); Potassium 4.5 mmol/L (3.3-5.1); Protein, Total 6.6 g/dL (5.9-8.4); Sodium Level 141 mmol/L (133-145); Total Bilirubin 0.54 mg/dL (0.00-1.30); Vitamin D,25 Hydroxy 46.4 ng/mL (30-100)
== END | disposition home or self-care (01) ==
LOC: LAB 11:50
PROVIDERS: PCP Family Medicine Geriatric Medicine; Referring Provider Family Medicine Geriatric Medicine; Visit Provider Family Medicine Geriatric Medicine
DX: E55.9 Vitamin D deficiency, unspecified (principal); R82.998 Other abnormal findings in urine; R53.83 Other fatigue
CPT/HCPCS: 36415; 80053; 81001; 82306; 84443; 85025; 87086; 87088

== ENCOUNTER → 2025-01-06 | Outpatient (CLI) | payer MEDICARE, OTHER, SELFPAY ==
[2025-01-06 11:57] LABS: Hematocrit 45.0 % (37-47); Hemoglobin 14.8 g/dL (12.0-15.0); Immature Granulocytes Count 0.010 X10^3/uL (0.0-0.0); Mean Corp Hgb Conc 32.9 g/dL (32-36); Mean Corpuscular Volume 93.0 fL (81-99); Mean Platelet Vol. 10.0 fl (6.2-12.0); NRBC Flagged by Analyzer 0 % (0-5); Platelet Count 230 K/mm3 (150-450); RBC Distribution Width CV 12.2 % (11.6-14.6); RBC Distribution Width SD 42.2 fl (35.1-43.9); Red Blood Count 4.84 M/mm3 (4.2-5.4); White Blood Count 5.0 K/mm3 (4.4-11.0)
[2025-01-06 12:55] LABS: AST(SGOT) 29 U/L (<=31); Alanine Aminotransfer ALT/SGPT 20 U/L (<=34); Albumin, Serum 4.2 g/dL (3.4-4.8); Alkaline Phosphatase 98 U/L (35-104); Anion Gap 9 (5-15); BUN 18 mg/dL (4-19); BUN/Creat Ratio 18.2 RATIO (10-20); Calcium,Total 10.6 mg/dL (7.6-11.0); Carbon Dioxide 23.9 mmol/L (21.0-32.0); Chloride 107 mmol/L (98-108); Globulin 2.5 g/dL (2.2-4.2); Glucose 95 mg/dL (70-99); Potassium 4.6 mmol/L (3.3-5.1); Vitamin D,25 Hydroxy 41.6 ng/mL (30-100)
[2025-01-06 19:38] LABS: Xtra Tube Kwok EXTRA TUBE
== END | disposition home or self-care (01) ==
LOC: POLAB3 11:37
PROVIDERS: PCP Family Medicine Geriatric Medicine; Visit Provider Family Medicine Geriatric Medicine
DX: E03.8 Other specified hypothyroidism (principal); E55.9 Vitamin D deficiency, unspecified; R53.83 Other fatigue
CPT/HCPCS: 36415; 80053; 82306; 84443; 85025